=== PATIENT | female | born 1955 | race Two or more races ===

== ENCOUNTER 2018-01-19 11:06 | Emergency (ER) | payer BC ==
[~2018-01-19] VITALS: Ht 160 cm; Wt 55.8 kg
--- NOTE | 2018-01-19 11:20 | NUR ---
Dr whiteside at the bedside for MSE.
--- NOTE | 2018-01-19 11:34 | NUR ---
Pt out of ER for CT.
[2018-01-19 12:06] VITALS: BP 118/60
--- NOTE | 2018-01-19 12:08 | NUR ---
Patient discharged to home in stable conditon. Written and verbal after care instructions given. Patient verbalizes understanding of instructions. Pt left ER w/ steady gait, accompained by family.
== END 2018-01-19 12:11 | disposition home or self-care (01) ==
LOC: ER 11:06
DX: S00.83XA Contusion of other part of head, initial encounter (principal); W18.30XA Fall on same level, unspecified, initial encounter; Y93.89 Activity, other specified; Y92.89 Other specified places as the place of occurrence of the external cause; Y99.8 Other external cause status
CPT/HCPCS: 70450; 70486; 99284; A4663

== ENCOUNTER 2024-07-29 00:30 | Emergency (ER) | payer MEDICARE, BC ==
[~2024-07-29] VITALS: Ht 157.5 cm; Wt 72.6 kg
[2024-07-29] MEDS ORDERED: CYCL5TAB PO (01:14)
[2024-07-29] MEDS ORDERED: NEOMY/BACITRA/POLYMYXIN B OINT UD PACKET TP ONE (01:26)
[2024-07-29] MEDS ORDERED: NEOMY/BACITRAC/POLYMI OINT 28.35 GM TUBE ONE (01:29)
[2024-07-29] MEDS: NEOMY/BACITRA/POLYMYXIN B OINT UD PACKET TP ONE (01:42)
[2024-07-29 02:58] VITALS: BP 111/51; O2SAT 97
== END 2024-07-29 02:58 | disposition home or self-care (01) ==
LOC: ER 00:30
DX: S29.012A Strain of muscle and tendon of back wall of thorax, initial encounter (principal); S00.03XA Contusion of scalp, initial encounter; W01.0XXA Fall on same level from slipping, tripping and stumbling without subsequent striking against object, initial encounter; Y93.01 Activity, walking, marching and hiking; Y92.89 Other specified places as the place of occurrence of the external cause; Y99.8 Other external cause status
CPT/HCPCS: A4606; A4663